=== PATIENT | male | born 1985 | race Caucasian/White ===

== ENCOUNTER 2023-12-16 16:34 | Emergency (ER) | payer BC, MEDICARE, SELFPAY ==
[2023-12-16 16:37] VITALS: BP 121/81
[2023-12-16 16:39] VITALS: BP 121/81
[2023-12-16 16:52] VITALS: BMI 28.4
[2023-12-16 16:52] LABS: % Basophils 0.5 % (0-2); % Eosinophils 1.5 % (0-6); % Immature Granulocytes 0.2 % (0-0.5); % Lymphocytes 38.1 % (20.5-51.1); % Monocytes 6.4 % (1.7-9.3); % Neutrophils 53.3 % (42.2-75.2); Absolute Eosinophils 0.1 10^3/uL (0-0.7); Absolute Lymphocytes 2.3 10^3/uL (1.2-3.4); Absolute Monocytes 0.4 10^3/uL (0.1-0.6); Absolute Neutrophils 3.1 10^3/uL (1.4-6.5); Hematocrit 36.7 % (39.0-52.0); Hemoglobin 13.3 g/dL (13.0-18.0); Mean Corp Hgb Conc. 36.2 g/dL (33.0-37.0); Mean Corpuscular Hgb 30.6 pg (27.0-31.0); Mean Corpuscular Volume 84.6 fL (80.0-94.0); Mean Platelet Volume 9.3 fL (7.4-10.4); Nucleated Red Blood Cells % 0 % (-); Platelet Count 233 10^3/uL (130-400); Red Blood Cell Count 4.34 10^6/uL (4.70-6.10); Red Cell Dist. Width 12.6 % (11.5-14.5); White Blood Cell Count 5.9 10^3/uL (4.8-10.8)
[2023-12-16 17:00] VITALS: BP 107/70
[2023-12-16 17:12] LABS: ALT (SGPT) 74 U/L (0-50); AST (SGOT) 57 U/L (17-59); Albumin 4.2 g/dl (3.5-5.0); Alkaline Phosphatase 80 U/L (38-126); Blood Urea Nitrogen 20 mg/dl (9-20); Calcium 9.6 mg/dl (8.4-10.2); Carbon Dioxide 22 mmol/L (22-30); Chloride 108 mmol/L (98-107); Estimated Creatinine Clearance 109 ml/min; Glucose 91 mg/dl (70-99); Potassium 3.9 mmol/L (3.5-5.1); Sodium 140 mmol/L (135-145); Total Bilirubin 0.4 mg/dl (0.2-1.3); Total Protein 6.1 g/dl (6.3-8.2); eGFR > 60.00
[2023-12-16 18:00] VITALS: BP 123/80
[2023-12-16 18:42] LABS: Urine Albumin Negative (Neg - Trace); Urine Bilirubin Negative (Negative); Urine Character Very Cloudy (Clear); Urine Color Yellow; Urine Glucose Negative (Negative); Urine Ketone Negative (Negative); Urine Leukocyte Negative (Negative); Urine Nitrite Negative (Negative); Urine Occult Blood Negative (Negative); Urine Urobilinogen Negative (Neg - 1+)
--- NOTE | 2023-12-16 18:50 | ED.GENMED ---
History of Present Illness
General
Chief Complaint: Seizure
Source: patient
Time Seen by Provider: 12/16/23 18:08
Nursing documentation reviewed up to this point in time: agreed with
History of Present Illness
History of Present Illness:
Pleasant 38-year-old male that presents with a seizure. Patient has a history of epilepsy and has had seizures since infancy. His last seizure was November 27. Patient is on Zomig and Lamictal. He states that since his last seizure he has been very
compliant with his medications. Patient resides in a group home house after battling a cocaine addiction. His last cocaine use was November 14. Today he states he was getting ready to go swimming in the pool when he felt the aura coming on. He went to
the bathroom and sat down. He had a witnessed seizure that lasted approximate 4 to 5 minutes long. He had his typical postictal phase afterwards. Patient has no complaints at time of exam.
Review of Systems
Review of Systems
Allergies reviewed?: Yes
All Other Systems: ROS reviewed and negative except as documented in HPI and ROS
Constitutional: Reports no symptoms
EENT: Reports no symptoms
Respiratory: Reports no symptoms
Cardiac: Reports no symptoms
ABD/GI: Reports no symptoms
: Reports no symptoms
Musculoskeletal: Reports no symptoms
Skin: Reports no symptoms
Neurological: Reports headache
Endocrine: Reports no symptoms
Hematologic/Lymphatic: Reports no symptoms
Psychiatric: Reports no symptoms
Phy Exam
General Physical Exam
General Presentation: well appearing and no apparent distress
General Skin: warm and dry
General Habitus: normal
General Mental: alert
General Hydration: appears well hydrated
ENT Exam
ENT Exam: EOMI, pharynx normal, neck supple and normocephalic
Eye Exam
Eye Exam: PERRL, cornea clear and conjunctiva normal
Cardiovascular Exam
Cardiovascular Exam: regular rate/rhythm, no edema, no murmur and normal peripheral pulses
Pulmonary Exam
Pulmonary Exam: lungs clear, no respiratory distress, no rales, no crackles, no rhonchi, no stridor, no wheezing and no cough
Gastrointestinal Exam
Gastrointestinal Exam: normal bowel sounds, non tender, soft, no organomegaly, no pulsatile mass and non distended
Neurological Exam
Neurological Exam: alert, oriented x3, no motor deficits, no sensory deficits and speech normal
Musculoskeletal Exam
Musculoskeletal Exam: full ROM and no edema
Skin Exam
Skin Exam: normal color, warm/dry, no rash and no petechia
Psychiatric Exam
Psychiatric Exam: normal mood/affect
Course
Orders/Labs/Results
Orders:
Orders
12/16/23 16:45
EKG [Electrocardiogram (*1)] Urgent
Reason for Study: Vertigo / Dizzy
EKG- Treatment ONCE
12/16/23 16:47
CMP [Comprehensive Metabolic Panel] Urgent
Complete Blood Count/With Diff Urgent
12/16/23 18:24
Drug Screen, Urine [Urine Drug Abuse Screen] Urgent
Date Specimen was Collected: 12/16/23
Time Specimen was Collected: 18:12
Urinalysis Reflex To Culture Urgent
Date Specimen was Collected: 12/16/23
Time Specimen was Collected: 18:12
12/16/23 18:57
Acetaminophen [Tylenol] 1,000 mg PO NOW STA
Abnormal Lab Results
12/16/23
16:47
RBC 4.34 L 10^6/uL
(4.70-6.10)
Hct 36.7 L %
(39.0-52.0)
Chloride 108 H mmol/L
(98-107)
ALT 74 H U/L
(0-50)
Total Protein 6.1 L g/dl
(6.3-8.2)
12/16/23 16:47
12/16/23 16:47
Vital Signs
Initial and Last Documented VS:
Initial Vital Signs
Temp Pulse Resp BP Pulse Ox
98.1 F 84 23 121/81 97
12/16/23 16:37 12/16/23 16:37 12/16/23 16:37 12/16/23 16:37 12/16/23 16:37
Last Documented Vital Signs
Temp Pulse Resp BP Pulse Ox
98.1 F 82 22 128/78 98
12/16/23 16:37 12/16/23 20:32 12/16/23 20:15 12/16/23 20:00 12/16/23 20:15
*Critical Care Note
Total Time (30-74mins, 75-104mins- exclusive of procedures): Not Applicable
Update Note
Update Note:
Patient states that he is back to normal. He wishes to be discharged. He does not wish to have any further medications.
ED Attending Note
-
Portions of this chart may have been created with voice recognition software.� Occasional wrong word or��sound alike� substitutions may have occurred due to the inherent limitations of voice recognition software.
Discharge Plan
Departure
Patient Disposition: Home (Routine Discharge)
Date of Disposition: 12/16/23
Time of Disposition: 19:37
Patient with high blood pressure during this ER visit?: No
Condition: Good
Discharge Problem:
Seizure
Instructions: Seizures, Adult (DC)
Prescriptions:
No Action
ibuprofen [Advil Liqui-Gel] 200 MG capsule
800 mg PO PRN PRN (Reason: pain)
acetaminophen [Tylenol] 325 MG capsule
650 mg PO PRN PRN (Reason: pain)
Lamictal:
700 mg PO DAILY
Referrals:
Phoenix Small MD [Active] - As needed
UNKNOWN - PT DOES,NOT KNOW [Family Provider] -
Activity Restrictions/Additional Instructions:
It was a pleasure meeting you and taking part in your care. We hope for your continued healing and wellness.
Please read discharge instructions in their entirety. However, they are for general education and may not describe your exact diagnosis at discharge. Information on your ER visit and medical conditions were discussed with you along with appropriate
follow up information...
If indicated, please take your medications as instructed and indicated on discharge paperwork.
Please schedule a follow up appointment as directed. Call to schedule an appointment
Please return to the emergency department with ANY change in, persisting, or worsening of symptoms. If any of your symptoms do not improve, or persist, or become more severe within 6-12 hours, please return to the emergency department for further
care.
Please return to the emergency department if you develop a headache, neck pain/stiffness, fever greater than 100.4F, chest pain, shortness of breath, persistent nausea, vomiting, slurred speech, difficulty walking, numbness/tingling, weakness, signs
of infection or any other symptoms that are worrisome to you.
If you have any questions or concerns please do not hesitate to call the Hospital at or E-mail me directly at [email or web address]
Interventions
Interventions:
*Risk Screen - Suicide Last Done: 12/16/23 21:00
*General Assessment Last Done: 12/16/23 16:52
*Neglect/Abuse Screening Last Done: 12/16/23 16:52
ED- Fall Risk Assessment Last Done: 12/16/23 21:00
*Nursing Disposition Last Done: 12/16/23 21:00
ED- Cardiac Assessment Last Done: 12/16/23 16:52
ED- Neurological Assessment Last Done: 12/16/23 16:52
ED- Pulmonary Assessment Last Done: 12/16/23 16:52
Discharge Date and Time
Discharge Date/Time: 12/16/23 21:00
Print Language: VENEZUELAN
[2023-12-16 18:55] LABS: Amphetamines Negative (Negative); Barbiturates Negative (Negative); Benzodiazepines Negative (Negative); Buprenorphine Negative (Negative); Cocaine Negative (Negative); Marijuana Negative (Negative); Methadone Negative (Negative); Methamphetamines Negative (Negative); Opiates Negative (Negative); Phencyclidine Negative (Negative); Tricyclic Antidepressants Negative (Negative)
[2023-12-16 19:00] VITALS: BP 129/89
[2023-12-16] MEDS: TYLENOL 1000 MG PO (19:00)
[2023-12-16 20:00] VITALS: BP 128/78
== END 2023-12-16 21:00 | disposition home or self-care (01) ==
LOC: EMR 16:34
PROVIDERS: Emergency Medicine; EMERGENCY PHYSICIAN Student in an Organized Health Care Education/Training Program
DX: G40.909 Epilepsy, unspecified, not intractable, without status epilepticus (principal)
CPT/HCPCS: 99283; 80053; 80306; 81003; 85025; 93005

== ENCOUNTER 2024-02-14 23:29 | Emergency (ER) | payer MEDICARE, SELFPAY ==
[2024-02-14 23:34] VITALS: BP 104/65
[2024-02-14 23:40] VITALS: BP 98/59
[2024-02-14 23:40] LABS: Glucose - Point of Care 99 mg/dl (70-99)
[2024-02-14 23:45] VITALS: BP 114/95
[2024-02-14 23:51] VITALS: BP 126/57
[2024-02-14 23:55] VITALS: BP 97/56
[2024-02-15] VITALS (16 sets, daily range): BP systolic 86–120; BP diastolic 51–73
[2024-02-15 00:01] LABS: % Basophils 0.3 % (0-2); % Eosinophils 0.2 % (0-6); % Immature Granulocytes 0.3 % (0-0.5); % Monocytes 4.3 % (1.7-9.3); % Neutrophils 85.9 % (42.2-75.2); Absolute Lymphocytes 0.6 10^3/uL (1.2-3.4); Absolute Monocytes 0.3 10^3/uL (0.1-0.6); Absolute Neutrophils 5.7 10^3/uL (1.4-6.5); Hematocrit 34.4 % (39.0-52.0); Hemoglobin 12.3 g/dL (13.0-18.0); Mean Corp Hgb Conc. 35.8 g/dL (33.0-37.0); Mean Corpuscular Hgb 30.3 pg (27.0-31.0); Mean Corpuscular Volume 84.7 fL (80.0-94.0); Mean Platelet Volume 9.6 fL (7.4-10.4); Nucleated Red Blood Cells % 0 % (-); Platelet Count 185 10^3/uL (130-400); Red Blood Cell Count 4.06 10^6/uL (4.70-6.10); Red Cell Dist. Width 12.2 % (11.5-14.5); White Blood Cell Count 6.6 10^3/uL (4.8-10.8)
[2024-02-15] MEDS: NSS 1000 IV ×2 (00:07→00:59)
[2024-02-15 00:15] LABS: ALT (SGPT) 32 U/L (0-50); AST (SGOT) 33 U/L (17-59); Albumin 4.5 g/dl (3.5-5.0); Alkaline Phosphatase 83 U/L (38-126); Blood Urea Nitrogen 21 mg/dl (9-20); Calcium 9.3 mg/dl (8.4-10.2); Carbon Dioxide 19 mmol/L (22-30); Chloride 106 mmol/L (98-107); Glucose 80 mg/dl (70-99); Sodium 140 mmol/L (135-145); Total Bilirubin 0.5 mg/dl (0.2-1.3); Total Protein 6.4 g/dl (6.3-8.2); eGFR > 60.00
[2024-02-15 00:16] LABS: Alcohol None Detected
[2024-02-15 00:27] LABS: Creatine Phosphokinase 289 U/L (55-170)
[2024-02-15] MEDS: ZOFRAN 4 MG IV (00:58)
[2024-02-15] MEDS: ATIVAN 1 MG IV (00:59)
--- NOTE | 2024-02-15 02:25 | ED.GENMED ---
History of Present Illness
General
Chief Complaint: Seizure
Source: ambulance crew and previous hospital records (Previous ED visits for similar breakthrough seizures November of this year as well as August 2021)
Exam Limitations: altered mental status (Postictal state)
Time Seen by Provider: 02/14/24 23:36
Nursing documentation reviewed up to this point in time: agreed with
History of Present Illness
History of Present Illness:
This is a 38-year-old gentleman who has longstanding history of epilepsy since childhood. Maintained on Lamictal 700 mg daily as well as Zomig. Prior history of alcohol as well as cocaine abuse. Has been a resident of sober living facility and
was witnessed to have 3 grand mal seizures tonight. Given intranasal Versed by senior living staff and then an additional 5 mg of IV Versed by EMS. After IV Versed by EMS, patient has remained seizure-free but somnolent/postictal. He was witnessed
to vomit during seizure activity.
According to EMS, house staff noted patient's last seizure was approximately 2 weeks ago, did not require intervention.
It is unclear how often he has breakthrough seizures but was evaluated in this ED December 15 for breakthrough seizure and at that time was noted to have a seizure November 27.
He was also evaluated in this ED August 2021 after suffering a seizure at work.
He arrives via EMS, markedly somnolent but purposeful movement. No seizure activity.
Past History
Past History
ED Past Medical History: Seizures and Other (Substance abuse)
Social History
Alcohol: Former
Drug: Former user
Personal: Single
Living: other (Resides in sober living facility)
Family History
Family History: Unable to obtain
Phy Exam
Physical Exam
Physical Exam:
GENERAL: 38-year-old male appears his stated age, markedly somnolent but noted to have intermittent purposeful movements of his extremities. No seizure activity. Nonrebreather mask in place with 10 L oxygen infusing.
EYE: pupils 5 mm equal and reactive. anicteric
NECK: Supple, nontender, no meningismus, no significant adenopathy.
ENT: Nasal trumpet in place left nostril; nonrebreather mask in place. Scant brownish mucus about lips. Posterior pharynx is clear, tongue is midline without apparent abrasion, oral mucosa is moist. TM clear b/l, nares patent.
CARDIAC: Regular rhythm, tachycardic. no murmur.
LUNGS: Intermittently sonorous respirations, no acute respiratory distress, lungs are clear to auscultation
ABDOMEN: Soft, nondistended, without appreciable tenderness, no abrasions or contusions. normoactive BS.
NEUROLOGICAL: Markedly somnolent, purposeful movement of all 4 extremities. No seizure activity noted.
SKIN: Warm and dry, normal color, skin intact. No rash.
MUSCULOSKELETAL: No C/C/E. peripheral pulses are full and equal b/l. No palpable tenderness.
PSYCH: Unobtainable. Postictal state.
Course
Orders/Labs/Results
Orders:
Orders
02/14/24 23:44
Cardiac Monitoring- Treatment ONCE
Urine Drug Abuse Screen Urgent
0.9% Sodium Chloride 1000 ml [Nss] 1,000 ml IV BOLUS
02/14/24 23:53
Alcohol Urgent
CPK [Creatine Phosphokinase] Urgent
Complete Blood Count/With Diff Urgent
Comprehensive Metabolic Panel Urgent
Lamictal [Lamotrigine (Lamictal)] [S] Urgent
02/15/24 00:23
Restraints - Non Violent As Directed
Justification-Patient:: 2-Protective Intervention
Restraint Type-: Soft Limb-L&R Wrist/4rail
Apply From (date): 02/15/24
Apply from (time): 00:24
Remove (date): 02/16/24
Remove (time): 23:59
02/15/24 00:40
Lorazepam [Ativan] 2 mg .ROUTE .STK-MED ONE
Ondansetron Injectable [Zofran] 4 mg .ROUTE .STK-MED ONE
02/15/24 00:47
0.9% Sodium Chloride 1000 ml [Nss] 1,000 ml IV BOLUS
02/15/24 00:48
CR Chest - 2 Views Urgent
Comment:
Reason For Exam: s/p several seizures w vomiting, hypoxia
02/15/24 00:57
Lorazepam [Ativan] 1 mg IV NOW STA
02/15/24 00:58
Ondansetron Injectable [Zofran] 4 mg IV NOW STA
Abnormal Lab Results
02/14/24
23:53
RBC 4.06 L 10^6/uL
(4.70-6.10)
Hgb 12.3 L g/dL
(13.0-18.0)
Hct 34.4 L %
(39.0-52.0)
Absolute Lymphs (auto) 0.6 L 10^3/uL
(1.2-3.4)
Neutrophils % 85.9 H %
(42.2-75.2)
Lymphocytes % 9.0 L %
(20.5-51.1)
Carbon Dioxide 19 L mmol/L
(22-30)
BUN 21 H mg/dl
(9-20)
Creatinine 1.4 H mg/dL
(0.7-1.3)
Creatine Kinase 289 H U/L
(55-170)
02/14/24 23:53
02/14/24 23:53
Vital Signs
Initial and Last Documented VS:
Initial Vital Signs
Temp Pulse Resp BP Pulse Ox
98.2 F 111 20 104/65 94
02/14/24 23:34 02/14/24 23:34 02/14/24 23:34 02/14/24 23:34 02/14/24 23:34
Last Documented Vital Signs
Temp Pulse Resp BP Pulse Ox
98.2 F 91 25 99/53 94
02/14/24 23:34 02/15/24 02:10 02/15/24 02:10 02/15/24 06:00 02/15/24 06:15
MDM/Problems Addressed
Differential Diagnosis Includes:
Patient with longstanding history of epilepsy since childhood presents after suffering 3 seizures tonight received 5 mg of intranasal Versed then 5 mg of IV Versed with resolution of seizures.
Arrives somnolent, postictal.
Reportedly vomited during seizure thus concern for aspiration.
There is no report of fall or injury. No acute traumatic findings on exam.
Will check labs including Lamictal level. Review of records reveal therapeutic Lamictal level August 2021.
Will plan for chest x-ray.
If seizure recurs we will plan for IV Ativan and will load with IV Keppra.
There is been no report of recurrent substance use but will check UDS and EtOH for completeness sake.
Chronic conditions affecting care: Neurological disorder (Seizure disorder)
*Radiology
Radiology exam reviewed: radiology read reviewed (Chest x-ray shows questionable patchy opacity left base otherwise unremarkable.)
*Pulse Oximetry
Patient hypoxic: yes
*EKG
Interpreted by ED Provider?: NA
*Criminal [employer] Interpretation
Rate: tachycardiac
Interpretation: abnormal
Rhythm: sinus
*Critical Care Note
Total Time (30-74mins, 75-104mins- exclusive of procedures): 30
comment:
Critical care statement: A total of 30 minutes of critical care time was provided for this patient. This includes management of unstable vital signs, evaluation of the patient at bedside, reviewing the patient's pertinent medical records, discussion
with consultants, review of old EKGs and review of pertinent medical records. This time with separate from time utilized to perform the aforementioned documented procedures
Update Note
Update Note:
02/15/2024 0715 AM
Patient has had no recurrent seizure since arrival to the ED.
Initial hypoxia has completely resolved. Room air pulse ox normal and continues to have no respiratory distress.
Chest x-ray shows questionable patchy infiltrate left base but lungs remain clear to auscultation, no respiratory distress nor cough.
He is now awake and alert, easily conversant and offers no complaints. He does admit to feeling mildly fatigued but no pain.
He does follow with a neurologist, unsure as to his last office visit perhaps a few months ago.
He states there has been no change in his medications, still maintained on Lamictal as well as Zomig and denies missing doses.
Encouraged him to touch base with his neurologist today for follow-up appointment.
I have spoken with supervisor wound at [facility], Mr. Redd who will pick up worker patient within the hour.
ED Attending Note
-
Portions of this chart may have been created with voice recognition software.� Occasional wrong word or��sound alike� substitutions may have occurred due to the inherent limitations of voice recognition software.
Discharge Plan
Departure
Patient Disposition: Home (Routine Discharge)
Date of Disposition: 02/15/24
Time of Disposition: 07:16
Patient with high blood pressure during this ER visit?: No
Condition: Good
Discharge Problem:
Breakthrough seizure, Seizure disorder
Instructions: Seizures, Adult (DC)
Prescriptions:
No Action
acetaminophen [Tylenol] 325 MG capsule
650 mg PO PRN PRN (Reason: pain)
Lamictal:
700 mg PO DAILY
zonisamide 100 mg Capsule
400 mg PO DAILY
meloxicam 7.5 mg Tablet
7.5 mg PO DAILY
sertraline 50 mg Tablet
50 mg PO DAILY
loratadine 10 mg Tablet
10 mg PO DAILY
omeprazole 20 mg Tablet,Delayed Release (Dr/Ec)
20 mg PO DAILY
guaifenesin [Mucinex] 600 mg Tablet Extended Release 12hr
600 mg PO Q12H PRN (Reason: GERD)
Nayzilam 5 mg/spray (0.1 mL) [place],Non-Aerosol
5 mg INTRANASAL ONCE
Referrals:
UNKNOWN - PT DOES,NOT KNOW [Family Provider] -
Activity Restrictions/Additional Instructions:
Call your neurologist today for prompt follow-up, reevaluation.
Continue current dose of Lamictal as well as Zomig.
Stay well-hydrated on a daily basis.
Interventions
Interventions:
ED- Cardiac Assessment Last Done: 02/15/24 00:40
ED- Neurological Assessment Last Done: 02/15/24 00:40
ED- Pulmonary Assessment Last Done: 02/15/24 00:40
Discharge Date and Time
Print Language: ROMANSH
[2024-02-17 00:08] LABS: Lamotrigine (Lamictal) 7.2 ug/mL (3.0-15.0)
== END 2024-02-15 08:56 | disposition home or self-care (01) ==
LOC: EMR 23:29
PROVIDERS: EMERGENCY PHYSICIAN Emergency Medicine
DX: G40.409 Other generalized epilepsy and epileptic syndromes, not intractable, without status epilepticus (principal); F14.10 Cocaine abuse, uncomplicated
CPT/HCPCS: 99283; 96374; 96375; 71046; 80053; 80175; 82077; 82550; 82962; 85025

== ENCOUNTER 2024-03-06 17:19 | Inpatient (IN) | payer MEDICARE, SELFPAY ==
[2024-03-06] VITALS (10 sets, daily range): BP systolic 93–124; BP diastolic 44–85; BMI 29.1; BMI 28.9
[2024-03-06 14:03] LABS: ALT (SGPT) 39 U/L (0-50); AST (SGOT) 38 U/L (17-59); Albumin 4.6 g/dl (3.5-5.0); Alkaline Phosphatase 85 U/L (38-126); Blood Urea Nitrogen 20 mg/dl (9-20); Calcium 9.8 mg/dl (8.4-10.2); Carbon Dioxide 24 mmol/L (22-30); Chloride 105 mmol/L (98-107); Glucose 99 mg/dl (70-99); Sodium 143 mmol/L (135-145); Total Bilirubin 0.8 mg/dl (0.2-1.3); Total Protein 6.7 g/dl (6.3-8.2); eGFR > 60.00
[2024-03-06 14:04] LABS: Alcohol None Detected
[2024-03-06 14:08] LABS: % Basophils 0.4 % (0-2); % Eosinophils 1.3 % (0-6); % Immature Granulocytes 0.1 % (0-0.5); % Lymphocytes 32.3 % (20.5-51.1); % Monocytes 6.9 % (1.7-9.3); Absolute Eosinophils 0.1 10^3/uL (0-0.7); Absolute Lymphocytes 2.3 10^3/uL (1.2-3.4); Absolute Monocytes 0.5 10^3/uL (0.1-0.6); Absolute Neutrophils 4.1 10^3/uL (1.4-6.5); Hematocrit 40.4 % (39.0-52.0); Mean Corp Hgb Conc. 34.7 g/dL (33.0-37.0); Mean Corpuscular Hgb 31.1 pg (27.0-31.0); Mean Corpuscular Volume 89.8 fL (80.0-94.0); Mean Platelet Volume 9.9 fL (7.4-10.4); Nucleated Red Blood Cells % 0 % (-); Platelet Count 248 10^3/uL (130-400); Red Cell Dist. Width 12.6 % (11.5-14.5)
[2024-03-06] MEDS: NSS 1000 IV (14:39)
[2024-03-06] MEDS: KEPPRA 1500 MG IV (14:39)
--- NOTE | 2024-03-06 15:20 | ED.GENMED ---
History of Present Illness
General
Chief Complaint: Seizure
Source: patient
Exam Limitations: none
Time Seen by Provider: 03/06/24 13:40
Nursing documentation reviewed up to this point in time: agreed with
History of Present Illness
History of Present Illness:
pt is a 38 y/o M with h/o previous alcohol and drug abuse
h/o epilepsy since age 3
here with hallucinations and brain fog/confusion since having seizure yesterday evening
he has last used alcohol and cocaine in september he believes
Per the notes he apparently had seizure activity 940 pm and then received intranasal midazolam at 9:49 pm
he was post ictal which was per usual/basleine
then around 11 pm got up to use the bathroom and fell twice which is unusual for him
he went to sleep
woke up and is having some visula hallucations, seeing a person that is not there, having trouble with recognition and spacial perception
pt has had headache which is not unusual after seizure
no fever, no infectoius sypmtoms
no vomiting
he has had tonic clonic seizure and petit mal seizures itn he past
he has been seen here a few times for break through seizures
no recent change to meds
apparently on lamictal and zonisidmie
Past History
Past History
ED Past Medical History: Seizures and Other (Substance abuse)
Social History
Alcohol: Former
Drug: Former user
Personal: Single
Living: other (Resides in sober living facility)
Family History
Family History: Unable to obtain
Phy Exam
Physical Exam
Physical Exam:
GENERAL: Alert , in no apparent distress
HEAD: NCAT
EYE: pupils equal and reactive, mild nystagmus on lateral gaze no photophobia
NECK: Supple,full rom, nontender
ENT: o/p clr, mmm.
CARDIAC: Regular rate and rhythm . no edema
LUNGS: Clear breath sounds bilaterally, no acute respiratory distress, no wheezes/rales/rhonchi
ABDOMEN: Soft, without focal tenderness, no r/g, no cvat
NEUROLOGICAL: Alert and orientedx 4, cn intact, no facial asymmetry, 5/5 strength in UE/LE, sensation intact, romberg neg, slightly ataxic, neg pronator drift
SKIN: Warm and dry, skin intact.
MUSCULOSKELETAL: No edema, well perfused.
PSYCH: strange, trouble focusing,
Course
Orders/Labs/Results
Orders:
Orders
03/06/24 13:36
Alcohol Urgent
Complete Blood Count/With Diff Urgent
Comprehensive Metabolic Panel Urgent
03/06/24 14:07
CT Head W/o Iv Contrast Urgent
Comment:
Reason For Exam: seizure x 2 yest now hallucinating
0.9% Sodium Chloride 1000 ml [Nss] 1,000 ml IV BOLUS
03/06/24 14:09
Consult Neurology [NEUROLOGY CONSULT] Urgent
Consulting Provider: Phoenix Small
Was physician already notified: Yes
03/06/24 14:21
CT Cervical Spine W/o Iv Contr Urgent
Comment:
Reason For Exam: fall after seizure
Levetiracetam Injectable [Keppra] 1,500 mg IV NOW STA
03/06/24 15:52
Urinalysis Reflex To Culture Urgent
Date Specimen was Collected: 03/06/24
Time Specimen was Collected: 13:35
Urine Drug Abuse Screen Urgent
Date Specimen was Collected: 03/06/24
Time Specimen was Collected: 13:35
03/06/24 16:27
Electrocardiogram (*1) Urgent
Reason for Study: QTc Monitoring
EKG- Treatment ONCE
Abnormal Lab Results
03/06/24
13:36
RBC 4.50 L 10^6/uL
(4.70-6.10)
MCH 31.1 H pg
(27.0-31.0)
03/06/24 13:36
03/06/24 13:36
Vital Signs
Initial and Last Documented VS:
Initial Vital Signs
Temp Pulse Resp BP Pulse Ox
98.7 F 74 18 121/85 97
03/06/24 13:30 03/06/24 13:30 03/06/24 13:30 03/06/24 13:30 03/06/24 13:30
Last Documented Vital Signs
Temp Pulse Resp BP Pulse Ox
98.7 F 71 21 120/67 96
03/06/24 13:30 03/06/24 15:00 03/06/24 15:00 03/06/24 15:00 03/06/24 15:00
MDM/Problems Addressed
Differential Diagnosis Includes:
seizures, toxicity, head injury
MDM/Problems Addressed:
daniel adame 38 y/o M
from drug/alcohol rehab since end january
h/o epilepsy
on lamictal and zonisimide
had seizure last night tonic clonic, given intranasal midazloam
post ictal per usu
then fell 2 times and this mornign is ataxic and hallucinating; trouble with spacial recognition
slightly ataxic here, mild nystagmus; easily distractible
stable vitals
head/neck ct neg
seen by neuro, requested charmaine initially and was going to do eeg but then after seeing him said pt is probably lamictal toxic and may be having pseudoseizures but toxic from the high lamictal dose; hold all seizure meds tonight except prn ativan;
*Critical Care Note
Total Time (30-74mins, 75-104mins- exclusive of procedures): Not Applicable
ED Attending Note
-
Portions of this chart may have been created with voice recognition software.� Occasional wrong word or��sound alike� substitutions may have occurred due to the inherent limitations of voice recognition software.
Discharge Plan
Departure
Patient Disposition: Admit
Date of Disposition: 03/06/24
Time of Disposition: 16:15
Admit to: Telemetry
Presentation/result/management discussed w/ accepting MD/DO: Hospitalist
Condition: Fair
Covid-19: Not Applicable
Discharge Problem:
Hallucination, Seizure, lamictal toxicity
Prescriptions:
No Action
acetaminophen [Tylenol] 325 MG capsule
650 mg PO PRN PRN (Reason: pain)
Lamictal:
700 mg PO DAILY
zonisamide 100 mg Capsule
400 mg PO DAILY
meloxicam 7.5 mg Tablet
7.5 mg PO DAILY
sertraline 50 mg Tablet
50 mg PO DAILY
loratadine 10 mg Tablet
10 mg PO DAILY
omeprazole 20 mg Tablet,Delayed Release (Dr/Ec)
20 mg PO DAILY
guaifenesin [Mucinex] 600 mg Tablet Extended Release 12hr
600 mg PO Q12H PRN (Reason: GERD)
Nayzilam 5 mg/spray (0.1 mL) [place],Non-Aerosol
5 mg INTRANASAL ONCE
Referrals:
NONE,* [Family Provider] -
Interventions
Interventions:
*Risk Screen - Suicide Last Done: 03/06/24 13:30
*General Assessment Last Done: 03/06/24 13:30
*Neglect/Abuse Screening Last Done: 03/06/24 13:30
ED- Fall Risk Assessment Last Done: 03/06/24 14:53
*ED COVID-19 Vaccine History Last Done: 03/06/24 14:53
ED- Cardiac Assessment Last Done: 03/06/24 14:53
ED- Neurological Assessment Last Done: 03/06/24 14:53
ED- Pulmonary Assessment Last Done: 03/06/24 14:53
Discharge Date and Time
Print Language: [id number]
[2024-03-06 16:10] LABS: Urine Albumin Negative (Neg - Trace); Urine Bilirubin Negative (Negative); Urine Character Clear (Clear); Urine Color Yellow; Urine Glucose Negative (Negative); Urine Ketone Negative (Negative); Urine Leukocyte Negative (Negative); Urine Nitrite Negative (Negative); Urine Occult Blood Negative (Negative); Urine Specific Gravity 1.015 (<1.030); Urine Urobilinogen Negative (Neg - 1+); Urine pH 6.5 (5.0-9.0)
[2024-03-06 16:39] LABS: Amphetamines Negative (Negative); Barbiturates Negative (Negative)
[2024-03-06 16:40] LABS: Benzodiazepines Negative (Negative); Buprenorphine Negative (Negative); Cocaine Negative (Negative); Marijuana Negative (Negative); Methadone Negative (Negative); Methamphetamines Negative (Negative); Opiates Negative (Negative); Phencyclidine Negative (Negative); Tricyclic Antidepressants Negative (Negative)
--- NOTE | 2024-03-06 16:48 | HPS.HSE ---
Family Physician
-
Family Physician: * NONE
Chief Complaint
-
visual hallucination
History of Present Illness
HPI: 38 y/o M with h/o previous alcohol and drug abuse, epilepsy (tonic clonic seizure and petit mal seizures); p/w visual hallucinations and brain fog/confusion since seizure the day prior.
Patient presented from a drug/alcohol rehab facility. According to him, his last use of alcohol/cocaine was in October.
He reported seizure activity the evening prior to admission, and received intranasal midazolam.
He then felt weak and fell twice following the event.
He woke up with visual hallucinations, seeing people that are not there.
According to ER note, he also complained of headache.
He denied to other symptoms.
Medical History
Past Medical History
Past Medical History: Reports Other
Additional Past Medical History:
previous alcohol and drug abuse
epilepsy (tonic clonic seizure and petit mal seizures)
Past Surgical History: Reports None
Social History
Tobacco: Former Smoker
Alcohol: Former
Family History
Family History: Not pertinent
Allergies / Home Medications
Allergies reflects when Allergies were last updated in [facility].
Home Medications with original date entered in [facility]
Allergy/Medication List:
Allergies
Allergy/AdvReac Type Severity Reaction Status Date / Time
divalproex sodium Allergy Severe Unknown Verified 03/06/24 13:30
[From Depakote]
ketorolac [From Toradol] Allergy Unknown Unknown Verified 03/06/24 13:30
Home Medications
loratadine 10 mg tablet 10 mg PO DAILYPRN PRN allergies 02/15/24
meloxicam 7.5 mg tablet 7.5 mg PO DAILY 02/15/24
midazolam 5 mg/spray (0.1 mL) nasal spray (Nayzilam) 5 mg intranasal DAILYPRN PRN seizure 02/15/24
omeprazole 20 mg tablet,delayed release 20 mg PO DAILYPRN PRN gerd 02/15/24
sertraline 50 mg tablet 50 mg PO DAILY 02/15/24
zonisamide 100 mg capsule 400 mg PO DAILY 02/15/24
acetaminophen 500 mg tablet (Tylenol Extra Strength) 1,000 mg PO Q6HPRN PRN mild pain 03/06/24
lamotrigine 100 mg tablet,extended release 24 hr (Lamictal XR) 100 mg PO DAILY 03/06/24
lamotrigine 300 mg tablet,extended release 24 hr (Lamictal XR) 600 mg PO DAILY 03/06/24
melatonin 10 mg tablet 10 mg PO HSPRN PRN sleep 03/06/24
Review of Systems
-
Neurological: Reports See HPI
Physical Exam
Vital Signs
Vital Signs
Temp Pulse Resp BP Pulse Ox
37.1 C 71 21 120/67 96
03/06/24 13:30 03/06/24 15:00 03/06/24 15:00 03/06/24 15:00 03/06/24 15:00
Physical Exam
General: Well Developed, Well Nourished, No Apparent Distress, Comfortable and Conversant
HEENT: NormoCephalic, Moist mucous membranes, Atraumatic, Nose Appears Normal and Ears Appear Normal
Respiratory: Clear and Non Labored Respirations; No Accessory Resp Muscle Use
Cardiac: S1/S2 and Regular Rhythm; No Murmur or Rub
GI: Soft, Non Tender, Non Distended and Normal Bowel Sounds; No Organomegaly
Rectal: Deferred by Provider
Musculoskeletal: No Clubbing, No Cyanosis and No Edema
Skin: No Rash
Neuro: Awake and Alert
Psych: Calm and Intact Judgment/Insight (somewhat)
Laboratory Results
-
03/06/24 13:36
03/06/24 13:36
Laboratory Results
Total Bilirubin 0.8 mg/dl (0.2-1.3) 03/06/24 13:36
AST 38 U/L (17-59) 03/06/24 13:36
ALT 39 U/L (0-50) 03/06/24 13:36
Alkaline Phosphatase 85 U/L (38-126) 03/06/24 13:36
Data Reviewed
-
CT Scan: Report Reviewed by me
Lab Data: Labs Reviewed by me
Impression/Plan
-
HPI: 38 y/o M with h/o previous alcohol and drug abuse, epilepsy (tonic clonic seizure and petit mal seizures); p/w visual hallucinations and brain fog/confusion since seizure the day prior.
Patient presented from a drug/alcohol rehab facility. According to him, his last use of alcohol/cocaine was in October.
He reported seizure activity the evening prior to admission, and received intranasal midazolam.
He then felt weak and fell twice following the event.
He woke up with visual hallucinations, seeing people that are not there.
According to ER note, he also complained of headache.
He denied to other symptoms.
A/P:
# Visual hallucination, unclear cause but felt to be overmedication/medication side effect per neurology
Neuro consult, hold [facility]GE RUNNER Lamictal and zonisamide for now until further directed by neurology
CT head unrevealing
check UDS
# Seizure d/o
Holding EDGE RUNNER Lamictal and zonisamide for now until further directed by neurology
IV Ativan as needed for seizure disorder
# Mechanical fall
PT OT eval
DVT prophylaxis: Lovenox SQ
Full code
--- NOTE | 2024-03-06 18:16 | PTCARENOTE ---
Patient received from ER awake , drowsy. Reports being tired since seizure yesterday. Oriented x3 able to make his needs known . Seizure Precautions maintained.
[2024-03-06] MEDS: LOVENOX 40 MG SC (18:27)
--- NOTE | 2024-03-06 21:36 | CON.NEURO4 ---
Consultation - Neurology 4
-
CONSULTING PHYSICIAN: Phoenix Small MD
REFERRING PHYSICIAN: ER
DICTATED BY: Phoenix Small MD
DATE/TIME OF REQUEST: 03/06/2024
DATE/TIME OF CONSULTATION: 03/06/2024 1600
Reason for Consultation: Blurred vision
History of Present Illness:
This is a 38 year old right) handed (male who has presented to the hospital with (chief complaint) of blurred vision. He gives a h/o intractable chronic epilepsy since infancy, alcohol and drug abuse who has been at behavioral facility. He is on
Lamictal 700mg daily for the last 3-4 months and Zonegran 400mg daily. He has been seizure free for 9 months. His last seizure was in June 2023. Yesterday he suffered a seizure. He received nasal Midazolam a rescue medication
Subsequently he fell asleep. When he woke up he had difficulty focusing and has been having depth perception issues, micropsia and macropsia visual hallucinations and brain fog/confusion since the day prior.
He then felt weak and fell twice following the event.
He later had visual hallucinations, seeing people that are not there. His speech is tangential and circumlocution with meaningless verbosity
Past Medical History: Seizure d/o
Surgical History: NC
Family History: NC
Social History: Single Behavioral health client
Allergies: Depakote, Toradol
Home Medications:
Review of Symptoms:
Patient denies any fever, headache, chest pain, shortness of breath, GI or symptoms.
Vital Signs:
The patient has .
Physical Exam:
The patient is afebrile, heart sounds S1 and S2 are (regular / irregular), and chest is clear to auscultation bilaterally.
- If not clear, describe.
Neurologic Examination:
The patient is awake, alert and oriented x 3. (He/ is able to follow commands and answer questions appropriately. There is no aphasia or dysarthria. Speech pattern follows a bizarre construct
On cranial nerve assessment, pupils are 3 mm bilateral, round and reactive to light and accommodation. Visual perez are full. Extraocular movements are intact. Nystagmus
Facial sensations are intact and bilaterally symmetrical, there is no facial asymmetry. Hearing is intact bilaterally to normal conversation volume. Tongue palate and uvula are midline. Sternocleidomastoid strengths are full bilaterally. Motor
strengths are 5/5 bilateral upper and lower extremities on medical research Mackey scale. There is no drift or involuntary movement noted. Deep tendon reflexes are 2+ bilateral upper and lower extremities and Babinski is absent bilaterally.
Sensations of pain, touch, temperature and vibration are intact and bilaterally symmetrical. There was no extinction noted on double simultaneous stimulation. Coordination is intact by finger to nose bilaterally. Rombergs positive. Gait unsteady
Lab Results: Addendum
Neuro Imaging: CT head: Normal cortex. Isolated Lacune. Normal ventricles
Impression:
(Mr. KELLY GILES is a 38 year old M who has presented to the hospital with (symptoms/chief complaint) of blurre.
Differentials for the patient's presentation include:
1. Visual Hallucination secondary to Lamictal toxicity
Recommendations:
1. Hold Lamictal for 24 hours
2. Restart Lamictal 300mg BID on Mar 08, 2024
3. Zonegran 200 mg BID
4. Keppra 1000mg IV given in ER
Discussed patient care with: ER
Allergies
-
Allergies
Allergy/AdvReac Type Severity Reaction Status Date / Time
divalproex sodium Allergy Severe Unknown Verified 03/06/24 13:30
[From Depakote]
ketorolac [From Toradol] Allergy Unknown Unknown Verified 03/06/24 13:30
Vital Signs and Labs
-
Vital Signs and Labs:
Vital Signs
Temp Pulse Resp BP Pulse Ox
36.4 C 62 18 112/70 99
03/06/24 19:30 03/06/24 19:30 03/06/24 19:30 03/06/24 19:30 03/06/24 20:04
Lab Results
03/06/24 13:36
03/06/24 13:36
Sodium 143 mmol/L (135-145) 03/06/24 13:36
Potassium 4.0 mmol/L (3.5-5.1) 03/06/24 13:36
BUN 20 mg/dl (9-20) 03/06/24 13:36
Glucose 99 mg/dl (70-99) 03/06/24 13:36
Calcium 9.8 mg/dl (8.4-10.2) 03/06/24 13:36
Ur Buprenorphine Negative (Negative) 03/06/24 15:52
Medications
-
Active Medications
Generic Name Dose Route Start Last Admin
Trade Name Freq PRN Reason Stop Dose Admin
Acetaminophen 1,000 mg 03/06/24 18:10
Acetaminophen 500 Mg Tablet PO 04/03/24 18:09
Q6HPRN PRN
mild pain
Bisacodyl 10 mg 03/06/24 18:10
Bisacodyl 10 Mg Rectal Suppository RECTAL 04/03/24 18:09
[id number] PRN
constipation
Enoxaparin Sodium 40 mg 03/06/24 18:10 03/06/24 18:27
Enoxaparin Sodium 40 Mg/0.4 Ml Syringe SC 04/03/24 18:09 40 mg
QPM ANANT Administration
Loratadine 10 mg 03/06/24 18:10
Loratadine 10 Mg Tablet PO 04/03/24 18:09
DAILYPRN PRN
allergies
Lorazepam 2 mg 03/06/24 18:10
Lorazepam 2 Mg/Ml Vial IV 04/03/24 18:09
Q6HPRN PRN
seizure
Melatonin 10 mg 03/06/24 18:25
Melatonin 5 Mg Tablet PO 04/03/24 18:24
HSPRN PRN
sleep
Pantoprazole Sodium 40 mg 03/06/24 18:24
Pantoprazole 40 Mg Delayed Release Tablet PO 04/03/24 18:23
DAILYPRN PRN
gerd
Polyethylene Glycol 17 grams 03/06/24 18:10
Polyethylene Glycol Powder 17 Grams Packet PO 04/03/24 18:09
DAILYPRN PRN
constipation
Senna/Docusate Sodium 1 tablet 03/06/24 18:10
Docusate W/Senna (Melissa-Colace) Tablet PO 04/03/24 18:09
BIDPRN PRN
constipation
Sertraline HCl 50 mg 03/07/24 08:00
Sertraline 50 Mg Tablet PO 04/04/24 07:59
DAILY ANANT
Sodium Chloride 0 flush 03/06/24 19:00
Sodium Chloride 0.9% (Flush) Syringe IV 04/03/24 18:59
PER PROTOCOL ANANT
Home Medications
�Medication �Instructions �Recorded
loratadine 10 mg tablet 10 mg PO DAILYPRN PRN allergies 02/15/24
meloxicam 7.5 mg tablet 7.5 mg PO DAILY 02/15/24
midazolam 5 mg/spray (0.1 mL) 5 mg intranasal DAILYPRN PRN 02/15/24
nasal spray (Nayzilam) seizure
omeprazole 20 mg tablet,delayed 20 mg PO DAILYPRN PRN gerd 02/15/24
release
sertraline 50 mg tablet 50 mg PO DAILY 02/15/24
zonisamide 100 mg capsule 400 mg PO DAILY 02/15/24
acetaminophen 500 mg tablet 1,000 mg PO Q6HPRN PRN mild pain 03/06/24
(Tylenol Extra Strength)
lamotrigine 100 mg tablet,extended 100 mg PO DAILY 03/06/24
release 24 hr (Lamictal XR)
lamotrigine 300 mg tablet,extended 600 mg PO DAILY 03/06/24
release 24 hr (Lamictal XR)
melatonin 10 mg tablet 10 mg PO HSPRN PRN sleep 03/06/24
[2024-03-07 07:33] VITALS: BP 101/57
[2024-03-07 07:53] LABS: Hematocrit 38.4 % (39.0-52.0); Hemoglobin 13.2 g/dL (13.0-18.0); Mean Corp Hgb Conc. 34.4 g/dL (33.0-37.0); Mean Corpuscular Hgb 30.4 pg (27.0-31.0); Mean Corpuscular Volume 88.5 fL (80.0-94.0); Mean Platelet Volume 10.1 fL (7.4-10.4); Platelet Count 219 10^3/uL (130-400); Red Blood Cell Count 4.34 10^6/uL (4.70-6.10); Red Cell Dist. Width 12.8 % (11.5-14.5)
[2024-03-07 08:26] LABS: Blood Urea Nitrogen 17 mg/dl (9-20); Calcium 9.6 mg/dl (8.4-10.2); Carbon Dioxide 22 mmol/L (22-30); Chloride 108 mmol/L (98-107); Estimated Creatinine Clearance 98 ml/min; Glucose 93 mg/dl (70-99); Potassium 4.3 mmol/L (3.5-5.1); Sodium 145 mmol/L (135-145); eGFR > 60.00
[2024-03-07 09:05] VITALS: BP 105/64; BP 125/74; BP 128/75; PULSE 67; PULSE 68
[2024-03-07] MEDS: ZONEGRAN 200 MG PO (09:17)
[2024-03-07] MEDS: ZOLOFT 50 MG PO (09:19)
--- NOTE | 2024-03-07 09:49 | W.PN.HOSP.TC ---
Addendum entered and electronically signed by Erika Olivares MD 03/07/24 12:38:
total DC time 40 min
DW Neuro
DW [facility] from the [facility] at [phone]
Original Note:
Today's Communication/Plan
-
see A/P
Assessment / Plan
Assessment / Plan
HPI: 38 y/o M with h/o previous alcohol and drug abuse, epilepsy (tonic clonic seizure and petit mal seizures); p/w visual hallucinations and brain fog/confusion since seizure the day prior.
Patient presented from a drug/alcohol rehab facility. According to him, his last use of alcohol/cocaine was in October.
He reported seizure activity the evening prior to admission, and received intranasal midazolam.
He then felt weak and fell twice following the event.
He woke up with visual hallucinations, seeing people that are not there.
According to ER note, he also complained of headache.
He denied to other symptoms.
A/P:
# Visual hallucination, unclear cause but felt to be overmedication/medication side effect per neurology
# H/o seizure d/o
s/p Keppra in ED
Neuro on board, recc to hold Lamictal for 24 hours, Restart Lamictal 300mg BID on Mar 08, 2024, cont Zonegran 200 mg BID
IV Ativan as needed for seizure disorder
CT head unrevealing
UDS negative
# Mechanical fall
PT OT eval: no need
DVT prophylaxis: Lovenox SQ
Full code
DW RN
DW Neuro
Anticipated Discharge: 24 - 48 hours
Subjective/Interval History
-
Date of Service: March 07, 2024
Objective Data
-
Labs:
Laboratory Results
03/07/24
07:27
WBC 6.0
Hgb 13.2
Hct 38.4 L
Plt Count 219
Sodium 145
Potassium 4.3
Chloride 108 H
Carbon Dioxide 22
BUN 17
Creatinine 1.0
Glucose 93
Calcium 9.6
Vital Signs:
Vital Signs
Temp Pulse Resp BP Pulse Ox
36.6 C 65 20 101/57 98
03/07/24 07:33 03/07/24 07:33 03/07/24 07:33 03/07/24 07:33 03/07/24 09:41
I&O
03/06/24 03/07/24 03/08/24
06:59 06:59 06:59
Intake Total 200 / 200
Output Total 400 / 400
Balance -200 / -200
Review of Systems
-
Neuro: Reports Other (visual hallucination has resolved , still feeling off balance )
Physical Exam
-
General: Well Developed, Well Nourished, No Apparent Distress, Comfortable and Conversant; Negative Respiratory Distress
HEENT: Normocephalic, Atraumatic, Nose Appears Normal and Ears Appear Normal; Negative Oxygen
Respiratory: Clear to Auscultation and Non Labored Respirations; Negative Accessory Resp Muscle Use
Cardiac: Regular Rhythm and S1/S2
GI: Soft, Nontender, Nondistended and Normal Bowel Sounds
Skin: Warm and Dry
Neuro: Awake and Alert
Psych: Calm and Intact Judgement/Insight (somewhat)
Data Reviewed
-
CT Scan: Report Reviewed by me
Labs: Labs Reviewed by me
[2024-03-07 10:53] LABS: Vitamin B12 649 pg/ml (239-931)
--- NOTE | 2024-03-07 11:01 | W.PN.NEURO.1 ---
Today's Communication / Plan
-
Pat may be discharged to [facility]hab [facility]
Restart Lamictal 300mg BID
Zonegran 200 mg BID
Keppra 500mg daily
Neuro Assessment/Plan
Assessment
38-year-old male with history of Right Temporal lobe sclerosis, refractory epilepsy who is currently on multiple AEDs. Was on Lamictal 700mg daily and Zonegran 400mg daily. Had a seizure was given Midazolam nasal spray. Postictal. On waking up he
was confused disoriented and had bizzare speech pattern with depth perception issues. He was sent to ER and was lethargic and ataxic with nystagmus. Clinical diagnosis: LAMICTAL TOXICITY.
In the ER He was given Keppra 1000mg IV. After hospitalization, This morning he has improved dramatically. Pat is aware that he has right temporal lobe sclerosis. I advised him on the surgical options
Plan
Restart Lamictal 300mg BID from this evening. Zonegran 200 mg BID.
Referral To [facility] ([facility]) for temporal lobe surgery
Subjective/Objective
Subjective Data
Date of Service: March 07, 2024
Patient is awake and alert. Cognition and visual acuity has improved when compared to admission. No headaches dizziness or blurred vision
Objective Data
Vital Signs
Temp Pulse Resp BP Pulse Ox
36.6 C 65 20 101/57 98
03/07/24 07:33 03/07/24 07:33 03/07/24 07:33 03/07/24 07:33 03/07/24 09:41
Lab Results
03/07/24 07:27
03/07/24 07:27
Sodium 145 mmol/L (135-145) 03/07/24 07:27
Potassium 4.3 mmol/L (3.5-5.1) 03/07/24 07:27
BUN 17 mg/dl (9-20) 03/07/24 07:27
Glucose 93 mg/dl (70-99) 03/07/24 07:27
Calcium 9.6 mg/dl (8.4-10.2) 03/07/24 07:27
Vitamin B12 649 pg/ml (239-931) 03/07/24 07:27
Ur Buprenorphine Negative (Negative) 03/06/24 15:52
Patient Allergies
divalproex sodium [From Depakote] Allergy (Severe, Verified 03/06/24 13:30)
Unknown
ketorolac [From Toradol] Allergy (Unknown, Verified 03/06/24 13:30)
Unknown
Physical Exam
-
General: Well Developed, Well Nourished, No Apparent Distress and Comfortable
Eyes: Able to visualize OU, Unremarkable, Round OU, [place] Conjunctivae, No Ptosis and PERRLA
HEENT: Normocephalic and Atraumatic
Neck: No Bruits Bilaterally and Full Range of Motion
Respiratory: Clear to Auscultation
Cardiac: Regular Rhythm
GI: Normal Bowel Sounds
Skin: Unremarkable
Extremities: No Clubbing, No Cyanosis and No Edema
Psych: Unremarkable
Extended Neurological Exam
Mood & Affect: Mood Unremarkable and Affect Unremarkable
Attention Span & Concentration: Awake, Alert, Interactive, No Difficulty with 2 Step Request and No Problem with Right/Left Differentiation
Memory: Able to Recall and Reduced
Tremor: Hand Tremor Absent and Head Tremor Absent
Speech: Quality Unremarkable, Quantity Unremarkable and Rate of Production Unremarkable
Cranial Nerve II: Left Eye: Pupillary Reactivity Unremarkable, Pupillary Size Unremarkable and Visual Blanco Grossly Intact
Cranial Nerve II: Right Eye: Pupillary Reactivity Unremarkable, Pupillary Size Unremarkable and Visual Blanco Grossly Intact
Cranial Nerves III, IV, : Extraocular Movement: Extraocular Movement Full in all Directions
Cranial Nerve V: Facial Sensation: Facial Sensation Unremarkable to Cold
Cranial Nerve VII: Facial Symmetry: Normal Facial Symmetry
Cranial Nerve VIII: Hearing: Unremarkable Hearing to Normal Conversational Volume
Cranial Nerves IX, X: Palate Movement: Palate Elevation Symmetric
Cranial Nerve XI: Shoulder Shrug: Unremarkable
Cranial Nerve XII: Tongue Protusion: Midline
Muscle Strength, Overall: Full Throughout
Muscle Bulk & Tone: Bulk Unremarkable and Tone Unremarkable
Pronator Drift: No Drift in Upper Extremities and No Drift in Lower Extremities
Deep Tendon Reflexes: Trace Throughout
Cold Sensation: Unremarkable
Vibration Sensation: Unremarkable
Touch Sensation: Unremarkable
Coordination: [id number] Testing Unremarkable and Reaches for Objects without Difficulty
Babinski Sign: Absent Bilaterally
Gait & Station: Up from Seated Without Problem, Up from Lying with Difficulty and Romberg Test Negative
Modified Rutledge Score (MRS)
-
Modified Armaan Scale (mRS): No significant disability. Able to carry out usual activities.
Score: 1
[2024-03-07 11:05] VITALS: BP 118/66
--- NOTE | 2024-03-07 11:47 | CM ---
milieu manager reviewed patient's chart and met with patient and patient reports that he was admitted from [facility], patient has been there for treatment, patient is independent with adl's and ambulation, no dme, skilled nursing case manager reached
out to [facility] and spoke with Emy who transferred skilled nursing case manager to [facility] the nurse practitioner, .
Plan; To return to [facility].
[id number] [facility].
[phone]
--- NOTE | 2024-03-07 12:07 | W.DCSUMMARY ---
Discharge Summary
Discharge Data
Date of Admission: 03/06/24
Date of Discharge: 03/07/24
-
Pending Results: No
Hospital Course
Principal Diagnosis:
Visual hallucination felt likely due to Lamictal toxicity per neurology
Chronic Diagnoses:�
Previous alcohol and drug abuse
epilepsy (tonic clonic seizure and petit mal seizures)
Consultations:�
Neurology
Procedures:�
None
Clinical course:�
This is a 38 year old male with past medical history as stated above, who was brought in from his drug alcohol rehab facility due to visual hallucination.
Problem 1:
Visual hallucination felt likely due to Lamictal toxicity per neurology.
His Lamictal dosage was changed from 600 mg daily to 300mg BID.
He can also continue Zonegran at 200 mg BID
Keppra 500mg daily was added this admission.
Of note, his CT head was unrevealing and UDS was negative.
As for the rest of his medical problems, they were stable during his hospital stay.
Discharge Plan
-
Patient Disposition: Alf/SNF
Discharge Diagnosis/Procedures: Visual hallucination felt likely due to Lamictal toxicity
Condition: Good
Diet: As tolerated
Activity: As tolerated
Driving Restrictions: Not until seen by your Dr
Referrals:
NONE,* [Family Provider] - in less than 1 week
Additional Discharge Medication Instructions: Continue Lamictal 300mg BID
Continue Zonegran 200 mg BID
Continue Keppra 500mg daily
Prescriptions:
New
levetiracetam [Keppra] 500 mg tablet
500 mg PO DAILY Qty: 30 0RF
lamotrigine 100 mg Tablet
300 mg PO BID Qty: 60 0RF
zonisamide 100 mg Capsule
200 mg PO BID Qty: 60 0RF
Continued
meloxicam 7.5 mg Tablet
7.5 mg PO DAILY
sertraline 50 mg Tablet
50 mg PO DAILY
loratadine 10 mg Tablet
10 mg PO DAILYPRN PRN (Reason: allergies)
omeprazole 20 mg Tablet,Delayed Release (Dr/Ec)
20 mg PO DAILYPRN PRN (Reason: gerd)
Nayzilam 5 mg/spray (0.1 mL) [place],Non-Aerosol
5 mg INTRANASAL DAILYPRN PRN (Reason: seizure)
acetaminophen [Tylenol Extra Strength] 500 mg Tablet
1,000 mg PO Q6HPRN PRN (Reason: mild pain)
melatonin 10 mg Tablet
10 mg PO HSPRN PRN (Reason: sleep)
Discontinued
zonisamide 100 mg Capsule
400 mg PO DAILY
lamotrigine [Lamictal XR] 100 mg Tablet Extended Release 24hr
100 mg PO DAILY
Rx Instructions:
take with 600mg for total of 700mg
lamotrigine [Lamictal XR] 300 mg Tablet Extended Release 24hr
600 mg PO DAILY
Rx Instructions:
take with 100mg for total of 700mg
Discharge Orders:
Discharge Patient (As Directed); Ordered 03/07/24
Ordered By: Erika Olivares
Discharge Date and Time
Print Language: JAPANESE
[2024-03-07] MEDS: TYLENOL 1000 MG PO (13:13)
--- NOTE | 2024-03-07 13:34 | W.PN.UPDATE ---
Update Note
Progress Note Update
CT head shows right temporal lobe sclerosis focal encephalomalacia
[2024-03-07] MEDS: KEPPRA 500 MG PO (14:06)
== END 2024-03-07 15:17 | DRG 918 ==
LOC: 4 WEST ACU 17:19
PROVIDERS: Emergency Medicine; ADMITTING PHYSICIAN Internal Medicine; CONSULT PHYSICIAN Psychiatry & Neurology Neurology; EMERGENCY PHYSICIAN Emergency Medicine
DX: T42.6X1A Poisoning by other antiepileptic and sedative-hypnotic drugs, accidental (unintentional), initial encounter (principal); G40.409 Other generalized epilepsy and epileptic syndromes, not intractable, without status epilepticus; R44.1 Visual hallucinations; G40.A09 Absence epileptic syndrome, not intractable, without status epilepticus; F19.10 Other psychoactive substance abuse, uncomplicated
CPT/HCPCS: 70450; 72125; 80048; 80053; 80306; 81003; 82077; 82607; 83735; 85025; 85027; 93005; 96361; 96374; 97162; 97166; 99285; 99406

== ENCOUNTER 2024-08-05 17:57 | Emergency (ER) | payer SELFPAY ==
[2024-08-05 18:00] VITALS: BP 138/83
[2024-08-05 18:17] LABS: % Basophils 0.3 % (0-2); % Eosinophils 1.2 % (0-6); % Immature Granulocytes 0.3 % (0-0.5); % Monocytes 5.9 % (1.7-9.3); % Neutrophils 56.3 % (42.2-75.2); Absolute Eosinophils 0.1 10^3/uL (0-0.7); Absolute Lymphocytes 2.1 10^3/uL (1.2-3.4); Absolute Monocytes 0.3 10^3/uL (0.1-0.6); Absolute Neutrophils 3.3 10^3/uL (1.4-6.5); Mean Corpuscular Hgb 30.9 pg (27.0-31.0); Mean Corpuscular Volume 88.3 fL (80.0-94.0); Mean Platelet Volume 9.6 fL (7.4-10.4); Nucleated Red Blood Cells % 0 % (-); Platelet Count 218 10^3/uL (130-400); Red Blood Cell Count 4.53 10^6/uL (4.70-6.10); Red Cell Dist. Width 12.2 % (11.5-14.5); White Blood Cell Count 5.8 10^3/uL (4.8-10.8)
--- NOTE | 2024-08-05 18:20 | ED.GENMED ---
History of Present Illness
General
Chief Complaint: Seizure
Source: patient
Exam Limitations: none
Time Seen by Provider: 08/05/24 18:20
Nursing documentation reviewed up to this point in time: agreed with
History of Present Illness
History of Present Illness:
Patient is a 39-year-old male with past medical history of seizures brought to the ER for evaluation of witnessed seizure at the gym. Patient presents awake alert he; is a poor historian Very short and angry that he was brought to the ER. When he
came out of the seizure he did not want to come to be evaluated but they brought him anyway. He does report he was on the bench when he felt his normal' aura.' He felt nauseous and had a witnessed seizure. EMS reported seizure lasted a couple
minutes. No trauma.
Patient is on Lamictal 700 mg XR and zonisamide 400 mg at night.
Patient reports his last seizure was in April. He is currently still residing in the recovery house substance abuse.
When asked when he last used drugs he reported to me that that is a separate problem however finally he stated that he last used drugs in Jun.
He is staying in a local recovery house but has a neurologist in [place] and does telemedicine with him.
Past History
Past History
ED Past Medical History: Seizures and Other (Substance abuse)
Social History
Alcohol: Former
Drug: Former user
Personal: Single
Living: other (Resides in sober living facility)
Family History
Family History: Unable to obtain
Review of Systems
Review of Systems
Allergies reviewed?: Yes
All Other Systems: ROS reviewed and negative except as documented in HPI and ROS
Constitutional: Reports no symptoms
Respiratory: Reports no symptoms
Cardiac: Reports no symptoms
ABD/GI: Reports no symptoms
Musculoskeletal: Reports no symptoms
Skin: Reports no symptoms
Neurological: Reports other (seizure )
Psychiatric: Reports no symptoms
Phy Exam
General Physical Exam
General Presentation: no apparent distress
General age: appears stated age
General Skin: warm and dry
General Habitus: normal
General Mental: alert
General Hydration: appears well hydrated
ENT Exam
ENT Exam: other (No oral abrasions or lacerations)
Eye Exam
Eye Exam: PERRL and EOMI
Eye Exam General: PERRL: bilateral and EOM intact: bilateral
Pupil Exam: Bilateral: round and reactive
Cardiovascular Exam
Cardiovascular Exam: regular rate/rhythm, no murmur and normal peripheral pulses
Pulmonary Exam
Pulmonary Exam: lungs clear and no respiratory distress
Neurological Exam
Neurological Exam: alert, oriented x3, no motor deficits, speech normal and other (Steady gait)
Musculoskeletal Exam
Musculoskeletal Exam: full ROM
Skin Exam
Skin Exam: normal color and warm/dry
Psychiatric Exam
Psychiatric Exam: normal mood/affect
Course
Orders/Labs/Results
Orders:
Orders
08/05/24 18:08
Complete Blood Count/With Diff Urgent
Comprehensive Metabolic Panel Urgent
Abnormal Lab Results
08/05/24
18:08
RBC 4.53 L 10^6/uL
(4.70-6.10)
AST 109 H U/L
(17-59)
Albumin 5.3 H g/dl
(3.5-5.0)
08/05/24 18:08
08/05/24 18:08
Vital Signs
Initial and Last Documented VS:
Initial Vital Signs
Temp Pulse Resp BP Pulse Ox
98.4 F 84 18 138/83 98
08/05/24 18:00 08/05/24 18:00 08/05/24 18:00 08/05/24 18:00 08/05/24 18:00
Last Documented Vital Signs
Temp Pulse Resp BP Pulse Ox
98.4 F 84 18 138/83 98
08/05/24 18:00 08/05/24 18:00 08/05/24 18:00 08/05/24 18:00 08/05/24 18:00
Director Of Laboratory Operations consulted with Physician
Director Of Laboratory Operations consulted with physician?: Yes
Name of Physician Consulted: Dr Mcdonough
MDM/Problems Addressed
MDM/Problems Addressed:
Patient is a 39-year-old male with history of seizures from local recovery house was at the gym and had a witnessed seizure. Patient very short limited historian and did not want to come to the ER and does not want to be here. Upon presentation he
is awake alert he is reluctant to give full history ;reluctant to discuss his history of drug abuse however has no complaints. Patient presents awake alert able to give full history is no complaints at this time and does not want to be here.
Basic labs are done prior to my exam and unremarkable. He denies any drug use. He reports last used drugs in June. He is in recovery house locally and has a neurologist in [place] which she has been communicating via telemedicine.
Patient is amatory with a steady gait wants to go home as discussed ED physician patient discharged and he is getting a ride back to [facility].
Chronic conditions affecting care:
prior seizure disorder ,prior drug abuse
*Pulse Oximetry
Patient hypoxic: no
*Critical Care Note
Total Time (30-74mins, 75-104mins- exclusive of procedures): Not Applicable
Data Reviewed
Review of Other/Old Records Reveals: Discharge Summary
ED Attending Note
-
Portions of this chart may have been created with voice recognition software.� Occasional wrong word or��sound alike� substitutions may have occurred due to the inherent limitations of voice recognition software.
Discharge Plan
Departure
Patient Disposition: Home (Routine Discharge)
Date of Disposition: 08/05/24
Time of Disposition: 18:51
Patient with high blood pressure during this ER visit?: Yes
Condition: Fair
Covid-19: Not Applicable
Discharge Problem:
Seizure
Instructions: Seizures, Adult (DC), BLOOD PRESSURE
Prescriptions:
No Action
meloxicam 7.5 mg Tablet
7.5 mg PO DAILY
sertraline 50 mg Tablet
50 mg PO DAILY
loratadine 10 mg Tablet
10 mg PO DAILYPRN PRN (Reason: allergies)
omeprazole 20 mg Tablet,Delayed Release (Dr/Ec)
20 mg PO DAILYPRN PRN (Reason: gerd)
Nayzilam 5 mg/spray (0.1 mL) [place],Non-Aerosol
5 mg INTRANASAL DAILYPRN PRN (Reason: seizure)
acetaminophen [Tylenol Extra Strength] 500 mg Tablet
1,000 mg PO Q6HPRN PRN (Reason: mild pain)
melatonin 10 mg Tablet
10 mg PO HSPRN PRN (Reason: sleep)
levetiracetam [Keppra] 500 mg tablet
500 mg PO DAILY Qty: 30 0RF
lamotrigine 100 mg Tablet
300 mg PO BID Qty: 60 0RF
zonisamide 100 mg Capsule
200 mg PO BID Qty: 60 0RF
Referrals:
UNKNOWN - PT DOES,NOT KNOW [Family Provider] -
Activity Restrictions/Additional Instructions:
Follow-up with your neurologist. Please call tomorrow for further evaluation and continue to take your seizure medications.
Interventions
Interventions:
*Risk Screen - Suicide Last Done: 08/05/24 18:00
*General Assessment Last Done: 08/05/24 18:00
*Neglect/Abuse Screening Last Done: 08/05/24 18:00
ED- Cardiac Assessment Last Done: 08/05/24 18:15
ED- Neurological Assessment Last Done: 08/05/24 18:15
ED- Pulmonary Assessment Last Done: 08/05/24 18:15
Discharge Date and Time
Print Language: [id number]
[2024-08-05 18:49] LABS: ALT (SGPT) 46 U/L (0-50); AST (SGOT) 109 U/L (17-59); Albumin 5.3 g/dl (3.5-5.0); Alkaline Phosphatase 74 U/L (38-126); Blood Urea Nitrogen 17 mg/dl (9-20); Carbon Dioxide 23 mmol/L (22-30); Chloride 103 mmol/L (98-107); Glucose 89 mg/dl (70-99); Potassium 4.5 mmol/L (3.5-5.1); Sodium 138 mmol/L (135-145); Total Bilirubin 0.9 mg/dl (0.2-1.3); Total Protein 7.1 g/dl (6.3-8.2); eGFR > 60.00
== END 2024-08-05 19:22 | disposition home or self-care (01) ==
LOC: EMR 17:57
PROVIDERS: EMERGENCY PHYSICIAN Emergency Medicine
DX: R56.9 Unspecified convulsions (principal); R03.0 Elevated blood-pressure reading, without diagnosis of hypertension
CPT/HCPCS: 99283; 80053; 85025